=== PATIENT | female | born 1995 | race Caucasian/White ===

== ENCOUNTER 2023-04-12 09:29 | Emergency (ER) | payer MEDICAID, OTHER ==
[~2023-04-12] VITALS: Ht 180.3 cm; Wt 67.3 kg
[2023-04-12 09:43] VITALS: BP 117/60; PULSE 93; RESP 16; TEMP 100.7; O2SAT 97
[2023-04-12] MEDS ORDERED: DEXAMETHASONE 10 MG/ML VIAL IM ONE (10:00)
[2023-04-12] MEDS ORDERED: IBUP-2030 MT (12:10)
[2023-04-12] MEDS ORDERED: AMOX1TAB16 MT (12:10)
[2023-04-12] MEDS ORDERED: GADOTERATE MEGLUMINE 5 MMOL/10 ML VIAL IV ONE (17:30)
== END 2023-04-12 17:03 | disposition home or self-care (01) ==
LOC: ER 09:29
DX: M54.50 Low back pain, unspecified (principal); J03.90 Acute tonsillitis, unspecified; Z76.5 Malingerer [conscious simulation]
CPT/HCPCS: 87430; 72156; 72157; 72158; 96372; 99285; A9577; J1100; Z7610 ×2